=== PATIENT | female | born 1980 | race Caucasian/White ===

== ENCOUNTER → 2020-07-23 | Outpatient (CLI) | payer OTHER ==
--- NOTE | 2020-07-23 14:31 | KCIC ---
MR LUMBAR SPINE WO [id number] Date: 07/23/2020 1:20 PM Indication: LUMBAGO. Pt fell, lbp and right radiculopathy x one month. Comparison: None. Technique: Multi-planar multi-weighted magnetic resonance imaging of the lumbar spine was performed w ithout intravenous contrast using the standard lumbar spine protocol. FINDINGS: The lumbar spine is normally aligned. No acute fracture. Mild multilevel degenerative disc desiccatio n and disc height loss, moderate at L5-S1. No marrow replacing process to suggest malignancy. The conus terminates at a normal level. No abnormal signal is seen within the visualized distal spina l cord. No clumping of intrathecal nerve roots. No soft tissue abnormality in the visualized abdomen or pelvis. T12-L1: No disc bulge. No facet arthropathy. No significant spinal stenosis or neural foraminal narro wing. L1-L2: No disc bulge. No facet arthropathy. No significant spinal stenosis or neural foraminal narrow ing. L2-L3: No disc bulge. No facet arthropathy. No significant spinal stenosis or neural foraminal narrow ing. L3-L4: Disc bulge. Mild facet arthropathy. No significant spinal stenosis or neural foraminal narrowi ng. L4-L5: Disc bulge. Mild facet arthropathy. No significant spinal stenosis. Mild left neural foraminal narrowing. L5-S1: Disc bulge with right paracentral/foraminal protrusion. Moderate right lateral recess narrowin g with displacement of the descending right S1 nerve root. Mild bilateral neural foraminal narrowing. IMPRESSION: Lumbar spondylosis, worst at L5-S1 where a disc protrusion narrows the right lateral recess and displ aces the right S1 nerve root. Correlate for radiculopathy. Electronically signed by: Eren Gil MD (07/23/2020 2:29 PM) [id number]
== END ==
LOC: KCIC MRI 13:01
PROVIDERS: ATTEND Physician Assistant
DX: M51.16 Intervertebral disc disorders with radiculopathy, lumbar region (principal); M47.817 Spondylosis without myelopathy or radiculopathy, lumbosacral region; M48.061 Spinal stenosis, lumbar region without neurogenic claudication
CPT/HCPCS: 72148

== ENCOUNTER → 2020-09-08 | Outpatient (CLI) | payer OTHER ==
[~2020-09-08] MED LIST: ALBU2.5V8 INH; ALPR1TAB2 PO; CYCL5TAB PO; GABA-585 PO; HYDR-2761 PO; METH100V PO; OXYC1TAB15 PO; QUET300T89 PO; SENN1TAB62 PO
[2020-09-08 14:21] LABS: BASO # 0.1 x10^3/uL (0.0-0.2); BASO % 1 % (0-3); EOS # 0.3 x10^3/uL (0.0-0.7); EOS % 4 % (0-3); HEMATOCRIT 39.7 % (36.0-47.0); LYMPH # 2.8 x10^3/uL (1.0-4.8); LYMPH % 34 % (24-48); MEAN CORPUSCULAR HEMOGLOBIN 31 pg (25-35); MEAN CORPUSCULAR HGB CONC 35 g/dL (31-37); MEAN CORPUSCULAR VOLUME 89 fL (79-100); MONO # 0.4 x10^3/uL (0.0-1.1); MONO % 5 % (0-9); NEUT # 4.6 x10^3/uL (1.8-7.7); NEUT % 57 % (31-73); PLATELET COUNT 398 x10^3/uL (140-400); RED BLOOD COUNT 4.46 x10^6/uL (3.50-5.40); RED CELL DISTRIBUTION WIDTH 13.1 % (11.5-14.5); WHITE BLOOD COUNT 8.2 x10^3/uL (4.0-11.0)
[2020-09-08 14:44] LABS: ALBUMIN 3.8 g/dL (3.4-5.0); ALBUMIN/GLOBULIN RATIO 1.1 (1.0-1.7); CREATININE 0.7 mg/dL (0.6-1.0); GFR 92.2; POTASSIUM 4.4 mmol/L (3.5-5.1); TOTAL BILIRUBIN 0.3 mg/dL (0.2-1.0); TOTAL PROTEIN 7.4 g/dL (6.4-8.2)
== END ==
LOC: SURGPAT 12:36
PROVIDERS: ATTEND Neurological Surgery
DX: Z01.812 Encounter for preprocedural laboratory examination (principal); R53.1 Weakness; Z20.822 Contact with and (suspected) exposure to COVID-19; M51.17 Intervertebral disc disorders with radiculopathy, lumbosacral region
CPT/HCPCS: 80053; 83036; 85025; 85610; 85730; 87641; U0003; U0005

== ENCOUNTER 2020-09-15 06:59 | Day surgery (SDC) | payer OTHER ==
[2020-09-08 13:17] VITALS: BP 131/85
[~2020-09-15] VITALS: Ht 167.6 cm; Wt 83.0 kg
[~2020-09-15 06:59] MED LIST changes: -METH100V PO; -OXYC1TAB15 PO; -SENN1TAB62 PO; +VANCOMYCIN 1GM IVPB FOR OMNI 250 ML IV PRN; +fentaNYL PF VIAL 100 MCG/2 ML VIAL IVP PRN
[2020-09-15] MEDS ORDERED: THROMBIN TOPICAL 20,000 UNIT SPRAY.SYRN KIT TP ONE (07:27)
[2020-09-15] MEDS ORDERED: LIDOCAINE 1%/EPI 1:100,000 20 ML VIAL. ONE (07:27)
[2020-09-15] MEDS ORDERED: GELATIN SPONGE SIZE 100. ONE (07:27)
[2020-09-15] MEDS ORDERED: BUPIVACAINE MPF 0.5% 30 ML VIAL. ONE (07:27)
[2020-09-15 07:30] VITALS: BP 136/83
[2020-09-15] MEDS: IV RINGERS,LACTATED 1000ML 1,000 ML IV SCH ×2 (07:50→11:45)
[2020-09-15] MEDS ORDERED: LIDOCAINE 2% PF 5 ML VIAL. ONE (08:04)
[2020-09-15] MEDS ORDERED: fentaNYL PF VIAL 250 MCG/5 ML VIAL ONE (08:04)
[2020-09-15] MEDS ORDERED: REMIFENTANIL 2 MG VIAL. IV ONE (08:04)
[2020-09-15] MEDS ORDERED: MIDAZOLAM HCL/PF 2 MG/2 ML VIAL. ONE (08:04)
[2020-09-15] MEDS ORDERED: PROPOFOL 50 ML IV ONE ×2 (08:04→09:46)
[2020-09-15] MEDS ORDERED: ROCURONIUM 50 MG/5 ML VIAL. ONE (08:05)
[2020-09-15] MEDS ORDERED: 0.9 % SODIUM CHLORIDE 20 ML VIAL. IJ ONE (08:05)
[2020-09-15] MEDS ORDERED: SEVOFLURANE > 120 MINUTES. IH ONE (09:46)
[2020-09-15] MEDS ORDERED: NEOSTIGMINE METHYLSULFATE 5 MG/5 ML SYRINGE. ONE (10:37)
[2020-09-15] MEDS ORDERED: GLYCOPYRROLATE 1 MG/5 ML VIAL. ONE (10:37)
[2020-09-15] MEDS ORDERED: MORPHINE SULFATE 2 MG/ML INJ. ONE (11:08)
[2020-09-15] MEDS: MORPHINE SULFATE 2 MG/ML INJ. IVP PRN ×2 (11:10→11:22)
[2020-09-15] MEDS ORDERED: PROCHLORPERAZINE 10 MG/2 ML VIAL. ONE (11:13)
[2020-09-15] MEDS: PROCHLORPERAZINE 10 MG/2 ML VIAL. IVP PRN ×2 (11:14→11:40)
[2020-09-15] MEDS ORDERED: OXYC1TAB15 PO (11:14)
[2020-09-15] MEDS ORDERED: HYDROmorphone 2 MG/ML VIAL ONE (11:16)
[2020-09-15] MEDS: HYDROmorphone 2 MG/ML VIAL IVP PRN ×4 (11:17→11:42)
[2020-09-15] MEDS ORDERED: METH100V PO (11:18)
[2020-09-15] MEDS ORDERED: SENN1TAB62 PO (11:21)
[2020-09-15 12:05] VITALS: BP 154/59
[2020-09-15] MEDS ORDERED: oxyCODONE/APAP 5/325 1 TAB TABLET PO ONE ×2 (12:15)
--- NOTE | 2020-09-15 15:02 | PDOC ---
BRIEF OPERATIVE NOTE Date: Sep 15, 2020 Pre-Op Diagnosis L5-S1 disk herniation, radiculopathy, weakness Post-Op Diagnosis same Procedure Performed right L5-S1 hemilaminotomy with discectomy Surgeon Manny Sap Architect none Anesthesia Type: General Blood Loss 10mL Specimens Obtained disk and decompression Findings herniated disk with mass effect of the neural elements right L5-S1, neuromonitoring improved at completion of procedure Complications none apparent SHIRA PEREZ MD Sep 15, 2020 15:02
--- NOTE | 2020-09-16 17:07 | PATHOLOGY ---
[facility] Accession Number: [id number] . 01 Material submitted: . PART A: vertebral column - DISC PART B: vertebral column - DECOMPRESSION . 01 Clinical history: . HERNIATED DISC RIGHT L5-S1 HEMILAMINECTOMY AND DISCECTOMY . 02 Diagnosis: A. Segments of cartilaginous tissue and minute segments of calcified bone, designated "disc": - Degenerative changes of cartilaginous tissue. . B. Segments of fibrocartilaginous tissue and bone, decompression: - Degenerative changes of fibrocartilaginous tissue. LBQ 09/16/2020 1532 Local . 02 Comment: There is no evidence of an acute inflammatory process or malignancy. (JPM/db; 09/16/2020) . 02 Electronically signed: . Saran Valentino MD, Pathologist NPI- [id number] . 01 Gross description: . A. The specimen is received in formalin, labeled "Habiger, Juliet and 1. Disc". It consists of a multiple prather irregular soft tissue fragments measuring 2.2 x 1.1 x 0.1 cm in aggregate. The specimen is placed in a biopsy bag and entirely submitted in A1. . B. The specimen is received in formalin, labeled "Habiger, Juliet and 2. Decompression". It consists of multiple prather irregular firm bony tissue fragments measuring 2.0 x 1.7 x 0.2 cm in aggregate. Utility Division Project Manager sections are placed in a biopsy bag and submitted in B1 following decalcification. (MRF; 09/15/2020) MFE/MFE 09/15/2020 1753 Local . 02 Pathologist provided ICD-10: M51.37 . 02 CPT . 740867, 704550, 484510 Specimen Comment: A courtesy copy of this report has been sent to [phone] Specimen Comment: Report sent to / DR GONZALES Performed at: [address] [facility], [place] [id number] MD Al Mitchell MD Phone: [phone] [facility]formed at: [facility] [address] [place], [place] [id number] MD Saran Valentino MD Phone: [phone]
--- NOTE | 2020-09-23 12:53 | OP ---
DATE OF SURGERY: 09/15/2020 SURGEON: Luis Bryant MD LIBRARY CUSTOMER SERVICE CLERK: None. PREOPERATIVE DIAGNOSIS: Herniated disk at L5-S1 with radiculopathy and weakness. POSTOPERATIVE DIAGNOSIS: Herniated disk at L5-S1 with radiculopathy and weakness. PROCEDURE: Right L5-S1 hemilaminotomy with discectomy. ANESTHESIA: General. COMPLICATIONS: None. INDICATIONS FOR PROCEDURE: The patient is a 40-year-old female with right lower extremity pain and weakness localized to a disk herniation at L5-S1. Please refer to the patient's chart for additional detail. DESCRIPTION OF PROCEDURE: After informed consent was obtained, the patient was brought into the operating room. She was placed under general anesthesia. She was placed in the prone position on the Harvinder frame. All pressure points were checked and padded appropriately. Vancomycin was instituted as a prophylactic antibiotic. Fluoroscopy was utilized to localize an appropriate incision location and the lumbar region was prepped and draped in the usual sterile fashion. A vertical incision centered over the region of L5-S1 was made with a 10-blade scalpel. Monopolar electrocautery was utilized to dissect the avascular midline to the spinous processes of lumbar 5 and sacral 1 and dissection was carried out rightward along the lamina at this location. The level was again verified with fluoroscopy prior to the initiation of decompression, a right hemilaminotomy was performed with a pneumatic drill as well as a Kerrison rongeur. The underlying ligament was gently dissected free from the thecal sac and removed with Kerrison rongeurs. The neural elements were gently retracted medially and a large annulus was identified. An 11-blade scalpel was utilized to access the annulus at L5-S1 and disk material emerged under pressure. This was removed in a piecemeal fashion with pituitary rongeurs. Additional disk material was teased posterolaterally with a blunt nerve hook and removed with pituitary rongeurs. Upon completion of the decompression and discectomy, the neuromonitoring potentials were noted to be improved compared to baseline. Also, decompression was verified with direct visualization as well as gentle palpation with the [place] and a blunt nerve hook. Upon completion of these things, pristine hemostasis was achieved with FloSeal, cottonoids and some use of bipolar electrocautery. The wound was generously irrigated prior to the final closure. The muscles and fascia were then reapproximated with 0 Vicryl in a simple interrupted fashion. Subcutaneous tissues were reapproximated with 2-0 Vicryl in interrupted inverted fashion. The skin was reapproximated with 4-0 Vicryl in a running subcuticular fashion. Mastisol and Steri-Strips were applied and the wound was dressed with Telfa, 4 x 4's and Tegaderm. At the end of the procedure, all needle and sponge counts were correct x 2. The patient was extubated in the operating room and taken to recovery in stable condition. There were no intraprocedural complications apparent. PAZ DR: Jael TID: [id number] [facility]PITALSohail
[2020-09-30] MEDS ORDERED: OXYC-325 PO (14:09)
[2020-10-01] MEDS ORDERED: OXYC-325 PO (09:54)
== END 2020-09-15 12:50 | disposition home or self-care (01) ==
LOC: SURG 06:59
PROVIDERS: ATTEND Neurological Surgery
DX: M51.27 Other intervertebral disc displacement, lumbosacral region (principal); M79.604 Pain in right leg; I48.91 Unspecified atrial fibrillation; J45.909 Unspecified asthma, uncomplicated; F41.9 Anxiety disorder, unspecified; Z88.0 Allergy status to penicillin; Z79.899 Other long term (current) drug therapy; Z98.890 Other specified postprocedural states
CPT/HCPCS: 36415; 63030; 81025; 86850; 86900; 86901; 88304; 88311; 97161; A4213; A4364; A4556; A4930; A6254; A6258; A6402; J0780; J1170; J2250; J2270; J2704; J2710; J3010; J3370; J3490; 76000; A4222; A4452